=== PATIENT | female | born 1955 | race Hispanic/Latino ===

== ENCOUNTER 2018-01-08 11:38 | Emergency (ER) | payer MEDICARE ==
[2018-01-08 11:45] VITALS: TEMP 97; O2SAT 99
[2018-01-08] MEDS ORDERED: Sodium Chloride 0.9% 1,000 ML IV STA (12:11)
--- NOTE | 2018-01-08 12:16 | ED PDOC ---
HPI: Abdomen Time Seen by Provider: 01/08/18 11:55 Chief Complaint (Nursing): Abdominal Pain Chief Complaint (Provider): abd pain History Per: Patient History/Exam Limitations: no limitations Onset/Duration Of Symptoms: Days (3 ) Current Symptoms Are (Timing): Still Present Additional Complaint(s): Pt. with off and on R upper and lower abd pain. No specific cause. No vomit, but has nausea. No chest pain, dyspnea, back pain, weakness, dysuria, vaginal bleeding. No fever. No new food or drinks/no travel. Past Medical History Reviewed: Nursing Documentation, Vital Signs Vital Signs: Last Vital Signs Temp 97 F L 01/08/18 11:42 Pulse 85 01/08/18 11:42 Resp 17 01/08/18 11:42 BP 138/80 01/08/18 11:42 Pulse Ox 99 01/08/18 12:17 - Medical History PMH: Anxiety, Depression Denies: Diabetes, Hepatitis, HIV, HTN, Seizures, Sexually Transmitted Disease - Surgical History Surgical History: Endoscopy (2011) - Family History Family History: States: Unknown Family Hx - Immunization History Hx Tetanus Toxoid Vaccination: Yes (less then 5 yrs) Hx Influenza Vaccination: No Hx Pneumococcal Vaccination: No - Home Medications Home Medications: Ambulatory Orders Medication Instructions Recorded Magnesium Citrate [[facility] 150 ml PO DAILY PRN 5 Days bottle 01/08/18 Pharmacy Magnesium Citrate] - Allergies Allergies/Adverse Reactions: Allergies Allergy/AdvReac Type Severity Reaction Status Date / Time iodine Allergy RASH Verified 01/17/16 10:46 Penicillins Allergy RASH Verified 01/17/16 10:46 Review of Systems ROS Statement: Except As Marked, All Systems Reviewed And Found Negative Gastrointestinal: Positive for: Nausea, Abdominal Pain Physical Exam - Reviewed Nursing Documentation Reviewed: Yes Vital Signs Reviewed: Yes - Physical Exam Appears: Positive for: Non-toxic, No Acute Distress Head Exam: Positive for: ATRAUMATIC, NORMAL INSPECTION, NORMOCEPHALIC Skin: Positive for: Normal Color, Warm, DRY Eye Exam: Positive for: EOMI, Normal appearance, PERRL ENT: Positive for: Normal ENT Inspection Neck: Positive for: Normal, Painless ROM Cardiovascular/Chest: Positive for: Regular Rate, Rhythm Respiratory: Positive for: CNT, Normal Breath Sounds Gastrointestinal/Abdominal: Positive for: Normal Exam, Soft, Tenderness (mild right mid and lower) Back: Positive for: Normal Inspection. Negative for: L CVA Tenderness, R CVA Tenderness Extremity: Positive for: Normal ROM Neurologic/Psych: Positive for: Alert, Oriented - Laboratory Results Result Diagrams: 01/08/18 12:35 01/08/18 12:35 Interpretation Of Abn Labs: no acute - ECG O2 Sat by Pulse Oximetry: 99 Pulse Ox Interpretation: Normal - CT Scan/US ct Other Rad Studies (CT/US): Read By Radiologist Other Rad Interpretation: ovarian cyst, constipation - Progress ED Course And Treament: 1501: Stable. AAOx3. Pain free. Tolerated PO. FU with pcp. Did not want any pain meds during stay. Is comfortable to go home and fu. Disposition - Clinical Impression Clinical Impression: Abdominal pain, Constipation, Ovarian cyst - Patient ED Disposition Is Patient to be Admitted: No Counseled Patient/Family Regarding: Studies Performed, Diagnosis, Need For Followup, Rx Given - Disposition Referrals: [facility] [Outside] - 01/09/18 Disposition: Routine/Home Disposition Time: 15:02 Condition: STABLE Additional Instructions: Return if not better in 3 days. Prescriptions: Magnesium Citrate [[facility] Magnesium Citrate] 150 ml PO DAILY PRN 5 Days bottle PRN Reason: Constipation Instructions: Ovarian Cysts, Constipation, Adult (DC), Stomach Ache and Stomach Upset Forms: [employer] (Bhutanese)
[2018-01-08 12:59] LABS: BASO # 0.1 K/uL (0.0-0.2); BASO % 0.9 % (0.0-2.0); EOS % 0.4 % (0.0-4.0); HEMOGLOBIN 12.7 g/dL (12.0-16.0); LYMPH # 1.4 K/uL (1.0-4.3); LYMPH % 22.2 % (20.0-40.0); MEAN CELL VOLUME 85.4 fl (81.0-99.0); MEAN PLATELET VOLUME 7.5 fl (7.2-11.7); MONO # 0.3 K/uL (0.0-0.8); MONO % 4.9 % (0.0-10.0); NEUT # 4.6 K/uL (1.8-7.0); NEUT % 71.6 % (50.0-75.0); RBC 4.39 Mil/uL (3.80-5.20); RED CELL DISTRIBUTION WIDTH 13.2 % (11.5-14.5); WHITE BLOOD COUNT 6.4 K/uL (4.8-10.8)
[2018-01-08 13:26] LABS: ALB/GLOB RATIO 1.1 (1.0-2.1); ALBUMIN 4.2 g/dL (3.5-5.0); ALT/SGPT 31 U/L (9-52); AST/SGOT 30 U/L (14-36); BLOOD UREA NITROGEN 13 mg/dl (7-17); CALCIUM 9.5 mg/dL (8.4-10.2); GFR AFRICAN-AMERICAN > 60; GFR NON-AFRICAN AMERICAN > 60; LIPASE 85 U/L (23-300)
--- NOTE | 2018-01-08 14:42 | CT ---
Date of service: 01/08/2018 PROCEDURE: CT abdomen pelvis 01/08/2018 HISTORY: Rule out stone. Right-sided pain with nausea. COMPARISON: No prior study available for comparison. TECHNIQUE: Contiguous axial images of the abdomen pelvis performed of without oral or intravenous contrast material. Additional 2D sagittal and coronal reformats generated. This CT exam was performed using one or more of the following dose reduction techniques: Automated exposure control, adjustment of the mA and/or kV according to patient size, and/or use of iterative reconstruction technique. Radiation dose: Total exam DLP = 275.41 mGy-cm. FINDINGS: LOWER THORAX: Unremarkable. LIVER: Liver exhibits relatively normal sun 9 just over 14 cm in CC dimension. No obvious hepatic mass or collection seen on noncontrast study. GALLBLADDER AND BILE DUCTS: Gallbladder appears incompletely distended. No obvious intraluminal gallbladder calculi PANCREAS: Unenhanced pancreas poorly seen though appears grossly unremarkable without masses or collections. SPLEEN: Spleen exhibits normal size and attenuation pattern without mass collection or calcification. ADRENALS: There appear to be bilateral adrenal nodules which exhibit low attenuation possibly representing adrenal adenomas. Follow-up at interval could be performed to assess stability. KIDNEYS AND URETERS: Kidneys demonstrates relatively symmetric size. No evidence of nephrolithiasis or hydronephrosis. BLADDER: Urinary bladder physiologically distended. No evidence of intraluminal urinary bladder calculi. REPRODUCTIVE: There appears to be a right-sided adnexal cystic cysts focus measuring 2.5 x 2.1 cm. Follow-up pelvic ultrasound could be performed to confirm. APPENDIX: What appears to represent a normal appendix best seen on axial sequence image number [id number]. BOWEL: Evaluation of the bowel is limited due to the lack of oral contrast material. Stomach is incompletely distended which presumably accounts for thick-walled appearance. Gastritis or other intrinsic/invasive wall lesion not excluded. Clinical correlation recommended. Visualized loops of small bowel exhibit normal contour and caliber. No evidence of acute mechanical small bowel obstruction. There is a large amount of stool within the large bowel consistent with fecal retention/ constipation. Note made of what appears represent some vague nonspecific infiltration changes in the mesentery adjacent to the posterior inferior margin of cecum nonspecific PERITONEUM: Unremarkable. No fluid collection. No free air. LYMPH NODES: Unremarkable. No enlarged lymph nodes. VASCULATURE: Unremarkable. No aortic aneurysm. BONES: Multilevel degenerative spondylosis of the lower thoracic and lumbar spine. There is also a mild scoliosis dextroscoliosis centered at approximately L3-L4 level. OTHER FINDINGS: None. IMPRESSION: Suspect right adnexal cyst as above. Follow-up pelvic ultrasound could confirm No evidence of nephrolithiasis or hydronephrosis. Note made of what appears represent some vague nonspecific infiltration changes in the mesentery adjacent to the posterior inferior margin of cecum nonspecific. No definitive radiographic evidence to suggest acute appendicitis however Findings consistent with constipation.
[2018-01-08] MEDS ORDERED: Magnesium Citrate Oral SOL (300 ml) PO ONE (15:00)
[2018-01-08] MEDS ORDERED: Magnesium Citrate Oral SOL (300 ml) ONE (15:12)
[2018-01-08 17:30] VITALS: BP 130/82; PULSE 82; RESP 18
== END 2018-01-08 15:20 | disposition home or self-care (01) ==
LOC: H.ER 11:38
DX: R10.9 Unspecified abdominal pain (principal); K59.00 Constipation, unspecified; N83.201 Unspecified ovarian cyst, right side; F32.9 Major depressive disorder, single episode, unspecified; F41.9 Anxiety disorder, unspecified; Z88.0 Allergy status to penicillin
CPT/HCPCS: 74176; 80053; 83690; 85025; 96374; 99284; J2405; J7030